=== PATIENT | male | born 1980 | race American Indian/Alaskan Native ===

== ENCOUNTER 2017-07-31 07:17 | Emergency (ER) | payer BC ==
[2017-07-31 07:24] VITALS: BP 114/63
--- NOTE | 2017-07-31 10:37 | Emergency Department Report ---
HPI - General Chief Complaint: Dental/Oral Time Seen by Provider: 07/31/17 10:32 - HPI HPI: Patient reports that he's had toothaches or left side upper and lower back tooth for 2 weeks. This is been going on and off today's pain is 4/10 and achy. Nothing making it better. He said he took [id number] pain medication is not helping. Denies any fever or chills. Denies any sore throat or difficulty swallowing. Denies any cough or shortness of breath. Denies any nasal congestion or sinus congestion. Denies any runny nose. Patient does not have access to a dentist. Denies any medical problems. Pain is worse with eating. ED Past Medical Hx - Past Medical History Previous Medical History?: No - Surgical History Past Surgical History?: No - Family History Family history: no significant - Social History Smoking Status: Current Every Day Smoker Substance Use Type: Alcohol Other Social History: Patient is single - Medications Home Medications: Home Medications Medication Instructions Recorded Confirmed Last Taken Type Acetaminophen/Codeine [Tylenol 1 tab PO Q8H PRN #15 tab 07/31/17 Unknown Rx /Codeine # 3 tab] Amoxicillin [Amoxicillin TAB] 875 mg PO BID #20 tablet 07/31/17 Unknown Rx Ibuprofen [Motrin] 600 mg PO Q8H PRN #15 tablet 07/31/17 Unknown Rx ED Review of Systems ROS: Stated complaint: TEETH HURTING Other details as noted in HPI Comment: All other systems reviewed and negative Constitutional: no symptoms reported Eyes: denies: eye pain, eye discharge ENT: dental pain. denies: ear pain, throat pain, congestion Respiratory: no symptoms reported Cardiovascular: denies: chest pain, palpitations, dyspnea on exertion, orthopnea , edema, syncope, paroxysmal nocturnal dyspnea Gastrointestinal: denies: nausea, vomiting Musculoskeletal: denies: back pain, joint swelling, arthralgia, myalgia Skin: denies: rash Neurological: denies: headache, weakness, abnormal gait, vertigo Physical Exam - Physical Exam Vital Signs: Vital Signs 07/31/17 07:22 Temperature 97.9 F Pulse Rate 58 L Respiratory 16 Rate Blood Pressure 114/63 O2 Sat by Pulse 99 Oximetry General: This is a 36-year-old male well-nourished well-developed in no acute distress. Physical Exam: Head: Normocephalic, atraumatic, no abrasion, no bruising and no contusion. Eyes: Biateral pupils equal and reactive to light, bilateral EOM intact.. Bilateral conjunctival and sclera without injection, normal accommodation. Ears: Bilateral EAC without any redness drainage or swelling,Bilateral TM pearly hurt, bilateral tragus is normal and nontender. No auricular abnormality. No Mastoid bones tenderness. Nose: Moist, normal mucosa. No maxillary or frontal sinus tenderness. Mouth: Moist, no pharyngeal erythema or exudate. No peritonsillar abscess. Uvula is midline and oral airways patent. tongue is normal. Noted dental caries but no cellulitis or indurated area. No dental tenderness. Neck: Supple, Positive Cervical adenopathy, full range of motion and no C-spine tenderness. No swelling or tracheal deviation Cardiovascular: S1, S2. Regular rate and rhythm. No murmur. Capillary refill is less then 3 seconds. Lungs: Clear to auscultate bilaterally. No rhonchi, wheezes or rales. No chest wall tenderness Extremities: No clubbing, cyanosis or edema. +2 pulses. No neurovascular compromise Skin: Clean, dry and intact. No rash or lesions. Psych: Normal mood and behavior. ED Course Vital Signs 07/31/17 07:22 Temperature 97.9 F Pulse Rate 58 L Respiratory 16 Rate Blood Pressure 114/63 O2 Sat by Pulse 99 Oximetry - Reevaluation(s) Reevaluation #1: 07/31/17 10:37 normal ed stay ED Medical Decision Making - Medical Decision Making Patient here reports that he has toothache this been ongoing for 2 weeks to left upper and lower tooth. Dental caries noted on physical exam. No abscess or cellulitis. I discussed the patient that he needs to follow up with dentist to call [facility] to schedule an appointment. I also discussed with him diagnosis and treatment plan. Patient was understanding of discharge diagnosis and treatment plan and discharged home in stable condition with prescription for amoxicillin, Motrin and Tylenol 3. Critical care attestation.: If time is entered above; I have spent that time in minutes in the direct care of this critically ill patient, excluding procedure time. ED Disposition Clinical Impression: Tooth ache, Dental caries Disposition: TO HOME OR SELFCARE Is pt being admited?: No Does the pt Need Aspirin: No Condition: Stable Instructions: Dental Caries (ED), Toothache (ED) Additional Instructions: Please follow up with [facility] as instructed. Refer to discharge instruction paperwork for details. Take antibiotic as prescribed Please do not drive or operate heavy machinery while taking Tylenol No. 3 as this medication causes drowsiness Prescriptions: Acetaminophen/Codeine [Tylenol /Codeine # 3 tab] 1 tab PO Q8H PRN #15 tab PRN Reason: Throat Pain Amoxicillin [Amoxicillin TAB] 875 mg PO BID #20 tablet Ibuprofen [Motrin] 600 mg PO Q8H PRN #15 tablet PRN Reason: Pain Referrals: [facility] [Outside] - 2-3 Days [facility] [Outside] - 2-3 Days Forms: Work/School Release Form(ED)
== END 2017-07-31 10:53 | disposition home or self-care (01) ==
LOC: ED 07:17
DX: K02.9 Dental caries, unspecified (principal); F17.200 Nicotine dependence, unspecified, uncomplicated
CPT/HCPCS: 99282

== ENCOUNTER 2019-09-03 10:15 | Emergency (ER) | payer BC ==
[2019-09-03 10:20] VITALS: BP 128/88
--- NOTE | 2019-09-03 11:35 | XRay Report ---
CHEST 2 VIEWS INDICATION: Dyspnea. COMPARISON: None FINDINGS: Support devices: None. Heart: Within normal limits. Lungs/pleura: No acute air space or interstitial disease. No pneumothorax. Additional findings: None. IMPRESSION: No acute findings. Signer Name: Brandon Chowdary Jr, MD Signed: 09/03/2019 11:31 AM Workstation Name: [id number]
--- NOTE | 2019-09-03 13:07 | Emergency Department Report ---
ED General Adult HPI - General Chief complaint: Dyspnea/Respdistress Stated complaint: YAQUELIN Time Seen by Provider: 09/03/19 12:41 Source: patient Mode of arrival: Ambulatory Limitations: No Limitations - History of Present Illness Initial comments: Patient is a 38-year-old male presents emergency room with complaints of difficulty in breathing that began yesterday. Patient states that the maintenance at his home put something in the sink to drain the sink. He states that when he got home he then put Drano into the sink which caused it to foam up. He states that he believes he inhaled some of the chemicals. He denies swallowing the chemicals or the chemicals getting into his face. He denies the chemicals coming into contact with him at all. Patient denies any chest pain, hemoptysis, vomiting, abdominal pain, mouth pain, irritation of the throat. he denies any PMHx or allergies to meds. He denies any daily meds. he denies any hx of asthma. states he quit smoking 3 months ago. - Related Data Previous Rx's Medication Instructions Recorded Last Taken Type Acetaminophen/Codeine [Tylenol 1 tab PO Q8H PRN #15 tab 07/31/17 Unknown Rx /Codeine # 3 tab] Amoxicillin [Amoxicillin TAB] 875 mg PO BID #20 tablet 07/31/17 Unknown Rx Ibuprofen [Motrin] 600 mg PO Q8H PRN #15 tablet 07/31/17 Unknown Rx Allergies Allergy/AdvReac Type Severity Reaction Status Date / Time No Known Allergies Allergy Verified 07/31/17 07:24 ED Review of Systems ROS: Stated complaint: YAQUELIN Other details as noted in HPI Comment: All other systems reviewed and negative ED Past Medical Hx - Past Medical History Previous Medical History?: No - Surgical History Past Surgical History?: No - Social History Smoking Status: Former Smoker Substance Use Type: Alcohol - Medications Home Medications: Home Medications Medication Instructions Recorded Confirmed Last Taken Type Acetaminophen/Codeine [Tylenol 1 tab PO Q8H PRN #15 tab 07/31/17 Unknown Rx /Codeine # 3 tab] Amoxicillin [Amoxicillin TAB] 875 mg PO BID #20 tablet 07/31/17 Unknown Rx Ibuprofen [Motrin] 600 mg PO Q8H PRN #15 tablet 07/31/17 Unknown Rx ED Physical Exam - General Limitations: No Limitations General appearance: alert, in no apparent distress - Head Head exam: Present: atraumatic, normocephalic - Eye Eye exam: Present: normal appearance - ENT ENT exam: Present: normal orophraynx, mucous membranes moist, TM's normal bilaterally, normal external ear exam, other (normal tongue, normal oropharynx) - Respiratory Respiratory exam: Present: normal lung sounds bilaterally. Absent: respiratory distress, wheezes, rales, rhonchi, stridor, chest wall tenderness, accessory muscle use, decreased breath sounds, prolonged expiratory - Cardiovascular Cardiovascular Exam: Present: regular rate, normal rhythm, normal heart sounds. Absent: systolic murmur, diastolic murmur, rubs, gallop - Neurological Exam Neurological exam: Present: alert, oriented X3 - Psychiatric Psychiatric exam: Present: normal affect, normal mood - Skin Skin exam: Present: warm, dry, intact ED Course Vital Signs 09/03/19 10:19 Temperature 98.6 F Pulse Rate 64 Respiratory 18 Rate Blood Pressure 128/88 O2 Sat by Pulse 99 Oximetry ED Medical Decision Making - Radiology Data Radiology results: report reviewed CHEST 2 VIEWS INDICATION: Dyspnea. COMPARISON: None FINDINGS: Support devices: None. Heart: Within normal limits. Lungs/pleura: No acute air space or interstitial disease. No pneumothorax. Additional findings: None. IMPRESSION: No acute findings. Signer Name: rBandon Sloan Jr, MD Signed: 09/03/2019 11:31 AM Workstation Name: [id number] Transcribed By: TTR Dictated By: BRANDON SLOAN JR, MD Electronically Authenticated By: BRANDON SLOAN JR, MD Signed Date/Time: 09/03/19 1131 - Medical Decision Making Patient is a 38-year-old male presents emergency room with complaints of difficulty in breathing that began yesterday. Patient states that the maintenance at his home put something in the sink to drain the sink. He states that when he got home he then put Drano into the sink which caused it to foam up. He states that he believes he inhaled some of the chemicals. He denies swallowing the chemicals or the chemicals getting into his face. He denies the chemicals coming into contact with him at all. Patient denies any chest pain, hemoptysis, vomiting, abdominal pain, mouth pain, irritation of the throat. he denies any PMHx or allergies to meds. He denies any daily meds. he denies any hx of asthma. states he quit smoking 3 months ago. vitals are normal. oxygen saturation is 99% on RA, no tachypnea, no tachycardia. on exam breath sounds are clear bilaterally without w/r/r, no signs of chemical burn in the oropharynx, nasal turbinates, or mouth/tongue. CXR with No acute findings. advised pt to please increase your water intake. May use a humidifier. Follow-up with a primary care doctor in the next 2-3 days for reexamination. Return to the emergency room for any new or worsening symptoms. Critical care attestation.: If time is entered above; I have spent that time in minutes in the direct care of this critically ill patient, excluding procedure time. ED Disposition Clinical Impression: Difficulty breathing, Exposure to chemical irritant Disposition: DC-01 TO HOME OR SELFCARE Is pt being admited?: No Does the pt Need Aspirin: No Condition: Stable Instructions: Dyspnea (ED) Additional Instructions: Please increase your water intake. May use a humidifier. Follow-up with a primary care doctor in the next 2-3 days for reexamination. Return to the emergency room for any new or worsening symptoms. Referrals: [facility] [Provider Group] - 2-3 Days [facility] [Outside] - 2-3 Days [facility] [Outside] - 2-3 Days Time of Disposition: 13:06 Print Language: PERUVIAN
== END 2019-09-03 13:40 | disposition home or self-care (01) ==
LOC: ED 10:15
DX: R06.89 Other abnormalities of breathing (principal); Z77.098 Contact with and (suspected) exposure to other hazardous, chiefly nonmedicinal, chemicals; Z79.899 Other long term (current) drug therapy; Z79.1 Long term (current) use of non-steroidal anti-inflammatories (NSAID); Z87.891 Personal history of nicotine dependence
CPT/HCPCS: 71046; 99283